=== PATIENT | female | born 1960 | race Caucasian/White ===

== ENCOUNTER 2021-01-03 03:57 | Emergency (ER) | payer MEDICARE ==
[~2021-01-03] VITALS: Ht 165.1 cm; Wt 102.1 kg
--- NOTE | 2021-01-03 13:42 | EKG ---
[facility] [address] [place], [place] [address] Signed Sinus tachycardia Possible Anterior infarct , age undetermined Abnormal ECG No previous ECGs available Confirmed by LEIDY GOLDSTEIN MD ([id number] on 01/03/2021 1:42:02 PM Electronically Signed By: LEIDY GOLDSTEIN MD 01/03/21 1342 PATIENT NAME: JOHNNY LUNA MICHELA Electrocardiogram DATE OF : 62 PHYSICIAN: LEIDY GOLDSTEIN MD REPORT #: [id number] REPORT IS CONFIDENTIAL AND NOT TO BE RELEASED WITHOUT AUTHORIZATION
== END 2021-01-03 05:41 | disposition home or self-care (01) ==
LOC: ED 03:57
DX: R40.4 Transient alteration of awareness (principal)
CPT/HCPCS: 71045; 80053; 81001; 84484; 85025; 93005; 93010; 99285-25; G0480; J7030